=== PATIENT | male | born 2000 | race Caucasian/White ===

== ENCOUNTER 2020-08-01 20:10 | Emergency (ER) | payer OTHER ==
[~2020-08-01 20:10] MED LIST: CARAFATE1 GM PO; ONDANSETRON ODT4 MG SL; PROTONIX 40MG T40 MG PO
[2020-08-01 22:47] LABS: AMPHETAMINES NEGATIVE (NEGATIVE); BARBITURATES NEGATIVE (NEGATIVE); ECSTASY (MDMA) NEGATIVE (NEGATIVE); MARIJUANA (THC) POSITIVE (NEGATIVE); METHADONE NEGATIVE (NEGATIVE); OPIATES NEGATIVE (NEGATIVE); OXYCODONE NEGATIVE (NEGATIVE)
[2020-08-01 22:53] LABS: BASOPHIL 0.6 % (0-2); EOSINOPHIL 1.5 % (0-5); HCT 48.6 % (42.0-52.0); HGB 16.8 g/dl (13.2-18.0); LYMPHOCYTE 27.7 % (15-48); MCH 30.2 pg (25.0-31.0); MCHC 34.6 g/dL (32.0-36.0); MCV 87.3 fL (78.0-100.0); MONOCYTE 6.2 % (0-12); NEUTROPHIL 63.8 % (41-80); NRBC 0; PLT 264 K/uL (150-400); RBC 5.57 M/uL (4.70-6.00); RDW 12.5 % (11.5-14.0); WBC 10.3 K/uL (4.0-10.5)
[2020-08-01 23:12] LABS: ALBUMIN 4.5 g/dL (3.4-5.0); BILIRUBIN - TOTAL 0.8 mg/dL (0.2-1.0); BUN/CREAT RATIO (CALC) 21.6 RATIO; C-REACTIVE PROTEIN 0.2 mg/dL (<=0.90); CREATININE 0.97 mg/dL (0.67-1.17); GLOBULIN (CALCULATION) 3.1 g/dL; IRON % SATURATION 11.6 %SAT (20-50); MAGNESIUM 2.1 mg/dL (1.8-2.4); POTASSIUM 3.4 mmol/L (3.5-5.1); TOTAL PROTEIN 7.6 g/dL (6.4-8.2)
[2020-08-01 23:34] LABS: CORONAVIRUS 2019 SARS-COV-2 NEGATIVE (NEGATIVE); INFLUENZA A NAA NEGATIVE (NEGATIVE)
[2020-08-02] MEDS ORDERED: ATIVAN0.5 MG PO (03:51)
== END 2020-08-02 03:40 | disposition home or self-care (01) ==
LOC: FER 20:10
PROVIDERS: Emergency Medicine Emergency Medical Services
DX: R55 Syncope and collapse (principal); F41.9 Anxiety disorder, unspecified; F17.290 Nicotine dependence, other tobacco product, uncomplicated; Z88.2 Allergy status to sulfonamides; Z20.822 Contact with and (suspected) exposure to COVID-19
CPT/HCPCS: 36415; 70450; 71045; 75635; 80053; 80305; 82550; 83540; 83550; 83735; 84484; 85025; 85379; 86140; 93005; J2060; J7120; Q9967; U0002

== ENCOUNTER 2020-08-21 18:23 | Emergency (ER) | payer OTHER ==
[~2020-08-21 18:23] MED LIST changes: +ATIVAN0.5 MG PO
[2020-08-21 19:39] LABS: BASOPHIL 0.8 % (0-2); EOSINOPHIL 1.2 % (0-5); HCT 43.5 % (42.0-52.0); HGB 15.1 g/dl (13.2-18.0); LYMPHOCYTE 27.2 % (15-48); MCH 30.4 pg (25.0-31.0); MCHC 34.7 g/dL (32.0-36.0); MCV 87.5 fL (78.0-100.0); MONOCYTE 6.6 % (0-12); MPV 9.5 fL (6.0-9.5); NRBC 0; PLT 233 K/uL (150-400); RBC 4.97 M/uL (4.70-6.00); RDW 12.2 % (11.5-14.0); WBC 5.1 K/uL (4.0-10.5)
[2020-08-21 19:55] LABS: ALBUMIN 4.1 g/dL (3.4-5.0); BILIRUBIN - TOTAL 0.9 mg/dL (0.2-1.0); BUN/CREAT RATIO (CALC) 13.7 RATIO; CREATININE 0.95 mg/dL (0.67-1.17); POTASSIUM 3.6 mmol/L (3.5-5.1); TOTAL PROTEIN 7.1 g/dL (6.4-8.2)
[2020-08-21 20:29] LABS: CORONAVIRUS 2019 SARS-COV-2 NEGATIVE (NEGATIVE); INFLUENZA A NAA NEGATIVE (NEGATIVE)
== END 2020-08-21 20:43 | disposition home or self-care (01) ==
LOC: FER 18:23
PROVIDERS: Emergency Medicine Emergency Medical Services
DX: F41.0 Panic disorder [episodic paroxysmal anxiety] (principal); M94.0 Chondrocostal junction syndrome [Tietze]; F17.210 Nicotine dependence, cigarettes, uncomplicated; Z88.2 Allergy status to sulfonamides; Z20.828 Contact with and (suspected) exposure to other viral communicable diseases
CPT/HCPCS: 36415; 71046; 80053; 84484; 85025; 93005; U0002

== ENCOUNTER 2020-08-24 19:05 | Emergency (ER) | payer OTHER | END 2020-08-24 20:25 | disposition left against medical advice (07) | LOC: FER 19:05 | DX: R10.9 Unspecified abdominal pain (principal); Z53.8 Procedure and treatment not carried out for other reasons ==

== ENCOUNTER 2020-09-13 11:20 | Day surgery (SDCO) | payer OTHER ==
[~2020-09-13] VITALS: Ht 188 cm; Wt 70.4 kg
[2020-09-13 12:01] LABS: BASOPHIL 0.8 % (0-2); EOSINOPHIL 0.9 % (0-5); HGB 17.4 g/dl (13.2-18.0); MCH 30.6 pg (25.0-31.0); MCHC 34.1 g/dL (32.0-36.0); MCV 89.8 fL (78.0-100.0); MPV 9.3 fL (6.0-9.5); NEUTROPHIL 59.8 % (41-80); NRBC 0; PLT 265 K/uL (150-400); RBC 5.68 M/uL (4.70-6.00); RDW 12.9 % (11.5-14.0); WBC 6.7 K/uL (4.0-10.5)
[2020-09-13 12:02] LABS: ALBUMIN 4.9 g/dL (3.4-5.0); BILIRUBIN - TOTAL 1.1 mg/dL (0.2-1.0); BUN/CREAT RATIO (CALC) 17.8 RATIO; CREATININE 0.9 mg/dL (0.67-1.17); GLOBULIN (CALCULATION) 3.4 g/dL; POTASSIUM 4.4 mmol/L (3.5-5.1); TOTAL PROTEIN 8.3 g/dL (6.4-8.2)
[2020-09-13 16:45] LABS: FT4 (FREE T4) 1.2 ng/dL (0.76-1.46); PHOSPHORUS 3.8 mg/dL (2.6-4.7); TOTAL T4 8.9 ug/dL (4.7-13.3)
[2020-09-14 06:10] LABS: BASOPHIL 0.5 % (0-2); EOSINOPHIL 1.6 % (0-5); HCT 45.9 % (42.0-52.0); LYMPHOCYTE 37.2 % (15-48); MCH 30.1 pg (25.0-31.0); MCHC 32.7 g/dL (32.0-36.0); MONOCYTE 8.2 % (0-12); MPV 9.2 fL (6.0-9.5); NEUTROPHIL 52.2 % (41-80); NRBC 0; PLT 208 K/uL (150-400); RBC 4.99 M/uL (4.70-6.00); RDW 12.9 % (11.5-14.0); WBC 6.1 K/uL (4.0-10.5)
[2020-09-14 06:29] LABS: BUN/CREAT RATIO (CALC) 14.3 RATIO; CREATININE 1.05 mg/dL (0.67-1.17)
--- NOTE | 2020-09-14 10:53 | NUR ---
PT LIVES WITH GRANDMA; PLEASE ADVISE OF ANY DISCHARGE NEEDS
--- NOTE | 2020-09-14 11:12 | NUR ---
WENT TO SEE THE PATIENT PT REPORTS HE DOES NOT HAVE A RIDE HOME AND NO FAMILY OR FRIENDS ARE AVAILIABLE TO COME AND PICK HIM UP. I DID LET RN, AND WILL LET STUDY DIRECTOR KNOW ONCE SHE IS OUT OF HER MEETING
--- NOTE | 2020-09-14 12:57 | NUR ---
09/14/20 A cab voucher was provided for transportation to grandmother's home. Pt reports that his grandmother doesn't drive and noone else is available to provide transportation.
--- NOTE | 2020-09-14 14:40 | NUR ---
RESP THERAPY PLACED HOLTER MONITOR ON PT AT THIS TIME. INSTRUCTED TO BRING BACK TO HOSPITAL ON 09/17 AT 1445. CALL HOSPITAL WITH ANY QUESTIONS/CONCERNS.
== END 2020-09-14 14:08 | disposition home or self-care (01) ==
LOC: FER 11:20 → FTCU 14:13
PROVIDERS: Emergency Medicine; Nurse Practitioner; ADMIT Internal Medicine
DX: R07.9 Chest pain, unspecified (principal); R55 Syncope and collapse; R00.0 Tachycardia, unspecified; F41.1 Generalized anxiety disorder; F43.10 Post-traumatic stress disorder, unspecified; Q79.3 Gastroschisis; M41.9 Scoliosis, unspecified; G43.909 Migraine, unspecified, not intractable, without status migrainosus; Z72.0 Tobacco use; Z88.2 Allergy status to sulfonamides; Z91.018 Allergy to other foods
CPT/HCPCS: 36415; 71045; 71275; 80048; 80053; 83735; 84100; 84436; 84439; 84443; 84480; 84481; 84484; 85025; 93005; 94010; G0378; J1200; J2405; J7030; Q9967

== ENCOUNTER 2020-09-16 13:20 | Emergency (ER) | payer OTHER | END 2020-09-16 14:15 | disposition home or self-care (01) | LOC: FER 13:20 | DX: F41.1 Generalized anxiety disorder (principal); Z88.2 Allergy status to sulfonamides; Z88.8 Allergy status to other drugs, medicaments and biological substances; Z91.018 Allergy to other foods | CPT/HCPCS: 99283 ==

== ENCOUNTER 2020-10-11 23:17 | Emergency (ER) | payer OTHER ==
[2020-10-11 23:40] LABS: BASOPHIL 0.4 % (0-2); EOSINOPHIL 0.5 % (0-5); HCT 38.8 % (42.0-52.0); HGB 13.4 g/dl (13.2-18.0); LYMPHOCYTE 18.2 % (15-48); MCH 31.2 pg (25.0-31.0); MCHC 34.5 g/dL (32.0-36.0); MCV 90.2 fL (78.0-100.0); MONOCYTE 8.2 % (0-12); MPV 9.4 fL (6.0-9.5); NEUTROPHIL 72.4 % (41-80); NRBC 0; PLT 247 K/uL (150-400); RDW 12.2 % (11.5-14.0); WBC 16.5 K/uL (4.0-10.5)
[2020-10-11 23:50] LABS: INR 1.22 (0.9-1.2); PROTHROMBIN TIME 14.6 SECONDS (11.4-13.6)
== END 2020-10-12 02:48 | disposition home or self-care (01) ==
LOC: FER 23:17
PROVIDERS: Emergency Medicine
DX: K91.841 Postprocedural hemorrhage of a digestive system organ or structure following other procedure (principal); F17.200 Nicotine dependence, unspecified, uncomplicated; Z98.818 Other dental procedure status; Y83.8 Other surgical procedures as the cause of abnormal reaction of the patient, or of later complication, without mention of misadventure at the time of the procedure
CPT/HCPCS: 36415; 85025; 85610; J2405; J7030

== ENCOUNTER 2020-12-18 17:22 | Emergency (ER) | payer OTHER ==
[2020-12-18 18:53] LABS: BASOPHIL 0.6 % (0-2); EOSINOPHIL 1.4 % (0-5); HCT 48.7 % (42.0-52.0); HGB 16.6 g/dl (13.2-18.0); LYMPHOCYTE 33.8 % (15-48); MCH 29.2 pg (25.0-31.0); MCHC 34.1 g/dL (32.0-36.0); MCV 85.7 fL (78.0-100.0); MONOCYTE 8.9 % (0-12); MPV 9.7 fL (6.0-9.5); NEUTROPHIL 55.1 % (41-80); NRBC 0; PLT 234 K/uL (150-400); RBC 5.68 M/uL (4.70-6.00); RDW 12.1 % (11.5-14.0); WBC 4.9 K/uL (4.0-10.5)
[2020-12-18 18:55] LABS: BILIRUBIN NEGATIVE (NEGATIVE); BLOOD NEGATIVE Ery/uL (NEGATIVE); CLARITY CLEAR (CLEAR); COLOR YELLOW (YELLOW); GLUCOSE (U) NORMAL (NORMAL); LEUKOCYTES NEGATIVE Leu/uL (NEGATIVE); NITRITE NEGATIVE (NEGATIVE); PROTEIN NEGATIVE (NEGATIVE); UROBILINOGEN 0.2 mg/dL (0.2-1.0)
[2020-12-18 19:02] LABS: CREATININE 0.99 mg/dL (0.67-1.17); POTASSIUM 4.1 mmol/L (3.5-5.1); TOTAL PROTEIN 8.3 g/dL (6.4-8.2)
[2020-12-18 19:03] LABS: ALBUMIN 4.9 g/dL (3.4-5.0); BILIRUBIN - TOTAL 1.1 mg/dL (0.2-1.0); GLOBULIN (CALCULATION) 3.4 g/dL
[2020-12-18] MEDS ORDERED: ONDANSETRON ODT4 MG SL (19:35)
[2020-12-18] MEDS ORDERED: ANTIVERT25 MG PO (19:35)
[2020-12-18] MEDS ORDERED: PHENERGAN25 M1 PO (19:50)
== END 2020-12-18 19:51 | disposition home or self-care (01) ==
LOC: FER 17:22
PROVIDERS: Emergency Medicine
DX: R42 Dizziness and giddiness (principal); F17.210 Nicotine dependence, cigarettes, uncomplicated; Z88.2 Allergy status to sulfonamides
CPT/HCPCS: 36415; 80053; 81003; 85025; 93005; J0780; J1885

== ENCOUNTER 2021-04-10 13:56 | Emergency (ER) | payer OTHER ==
[~2021-04-10 13:56] MED LIST changes: +ANTIVERT25 MG PO; +PHENERGAN25 M1 PO
[2021-04-10 15:58] LABS: BILIRUBIN NEGATIVE (NEGATIVE); BLOOD NEGATIVE Ery/uL (NEGATIVE); CLARITY CLEAR (CLEAR); COLOR YELLOW (YELLOW); GLUCOSE (U) NORMAL (NORMAL); LEUKOCYTES NEGATIVE Leu/uL (NEGATIVE); NITRITE NEGATIVE (NEGATIVE); PROTEIN NEGATIVE (NEGATIVE); UROBILINOGEN 0.2 mg/dL (0.2-1.0)
[2021-04-10 16:08] LABS: AMPHETAMINES NEGATIVE (NEGATIVE); BARBITURATES NEGATIVE (NEGATIVE); ECSTASY (MDMA) NEGATIVE (NEGATIVE); MARIJUANA (THC) NEGATIVE (NEGATIVE); METHADONE NEGATIVE (NEGATIVE); OPIATES NEGATIVE (NEGATIVE); OXYCODONE NEGATIVE (NEGATIVE)
[2021-04-10 16:50] LABS: BASOPHIL 0.8 % (0-2); EOSINOPHIL 2.2 % (0-5); HCT 49.9 % (42.0-52.0); HGB 16.8 g/dl (13.2-18.0); LYMPHOCYTE 37.1 % (15-48); MCH 29.1 pg (25.0-31.0); MCHC 33.7 g/dL (32.0-36.0); MCV 86.3 fL (78.0-100.0); MONOCYTE 6.9 % (0-12); MPV 9.3 fL (6.0-9.5); NEUTROPHIL 52.8 % (41-80); NRBC 0; PLT 230 K/uL (150-400); RBC 5.78 M/uL (4.70-6.00); RDW 12.8 % (11.5-14.0); WBC 5.1 K/uL (4.0-10.5)
[2021-04-10 17:12] LABS: BUN/CREAT RATIO (CALC) 15.2 RATIO; CREATININE 0.99 mg/dL (0.67-1.17)
[2021-04-10 17:15] LABS: MONOSPOT (MONONUCLEOSIS) NEGATIVE (NEGATIVE)
== END 2021-04-10 18:55 | disposition home or self-care (01) ==
LOC: FER 13:56
PROVIDERS: Nurse Practitioner Family
DX: R06.02 Shortness of breath (principal); R53.81 Other malaise; F17.210 Nicotine dependence, cigarettes, uncomplicated; Z88.2 Allergy status to sulfonamides; Z88.8 Allergy status to other drugs, medicaments and biological substances; Z20.822 Contact with and (suspected) exposure to COVID-19
CPT/HCPCS: 36415; 71046; 80048; 80305; 81003; 85025; 86308; 87880; 93005; J7030; U0002

== ENCOUNTER 2021-06-05 22:21 | Emergency (ER) | payer OTHER ==
[2021-06-05 23:14] LABS: INR 1.12 (0.9-1.2); PROTHROMBIN TIME 13.8 SECONDS (11.8-13.4); PTT 28.6 SECONDS (24.4-34.7)
[2021-06-05 23:31] LABS: BASOPHIL 0.8 % (0-2); EOSINOPHIL 2.5 % (0-5); HCT 48.9 % (42.0-52.0); HGB 16.8 g/dl (13.2-18.0); MCH 29.7 pg (25.0-31.0); MCHC 34.4 g/dL (32.0-36.0); MCV 86.5 fL (78.0-100.0); MONOCYTE 7.3 % (0-12); MPV 9.6 fL (6.0-9.5); NEUTROPHIL 46.1 % (41-80); NRBC 0; PLT 262 K/uL (150-400); RBC 5.65 M/uL (4.70-6.00); RDW 11.9 % (11.5-14.0); WBC 7.3 K/uL (4.0-10.5)
[2021-06-06 00:08] LABS: ALBUMIN 4.6 g/dL (3.4-5.0); BILIRUBIN - TOTAL 0.8 mg/dL (0.2-1.0); GLOBULIN (CALCULATION) 2.9 g/dL; POTASSIUM 4.1 mmol/L (3.5-5.1); TOTAL PROTEIN 7.5 g/dL (6.4-8.2)
[2021-06-06 01:12] LABS: CORONAVIRUS 2019 SARS-COV-2 NEGATIVE (NEGATIVE); INFLUENZA A NAA NEGATIVE (NEGATIVE)
[2021-06-08] MEDS ORDERED: BENTYL10 MG PO (11:00)
[2021-06-08] MEDS ORDERED: IMITREX50 MG PO (11:00)
[2021-06-08] MEDS ORDERED: PHENERGAN25 M1 PO (11:00)
== END 2021-06-06 01:52 | disposition home or self-care (01) ==
LOC: FER 22:21
PROVIDERS: Internal Medicine
DX: R07.89 Other chest pain (principal); T75.4XXA Electrocution, initial encounter; F17.210 Nicotine dependence, cigarettes, uncomplicated; Z88.2 Allergy status to sulfonamides; Z88.8 Allergy status to other drugs, medicaments and biological substances; Z91.018 Allergy to other foods; Z20.822 Contact with and (suspected) exposure to COVID-19
CPT/HCPCS: 36415; 71045; 80053; 84484; 85025; 85610; 85730; 93005; U0002

== ENCOUNTER 2021-06-08 07:11 | Emergency (ER) | payer OTHER | END 2021-06-08 11:45 | disposition home or self-care (01) | LOC: FER 07:11 | DX: R10.13 Epigastric pain (principal); R51.9 Headache, unspecified; F17.210 Nicotine dependence, cigarettes, uncomplicated; Z88.8 Allergy status to other drugs, medicaments and biological substances; Z88.2 Allergy status to sulfonamides; Z91.018 Allergy to other foods ==

== ENCOUNTER 2021-08-23 05:19 | Emergency (ER) | payer OTHER ==
[~2021-08-23 05:19] MED LIST changes: +BENTYL10 MG PO; +IMITREX50 MG PO
== END 2021-08-23 06:28 | disposition home or self-care (01) ==
LOC: FER 05:19
DX: M54.2 Cervicalgia (principal); M25.519 Pain in unspecified shoulder; F17.200 Nicotine dependence, unspecified, uncomplicated; Z88.2 Allergy status to sulfonamides; Z88.8 Allergy status to other drugs, medicaments and biological substances
CPT/HCPCS: 99283

== ENCOUNTER 2021-08-26 19:57 | Emergency (ER) | payer OTHER ==
[2021-08-26] MEDS ORDERED: MEDROL 4MG DOSEP4 MG PO (22:10)
== END 2021-08-26 22:20 | disposition home or self-care (01) ==
LOC: FER 19:57
DX: T78.40XA Allergy, unspecified, initial encounter (principal); F17.210 Nicotine dependence, cigarettes, uncomplicated; Z88.2 Allergy status to sulfonamides; Z91.018 Allergy to other foods; Z91.09 Other allergy status, other than to drugs and biological substances
CPT/HCPCS: J1200; J2930; J7030

== ENCOUNTER 2021-08-28 12:52 | Emergency (ER) | payer OTHER ==
[~2021-08-28 12:52] MED LIST changes: +MEDROL 4MG DOSEP4 MG PO
[2021-08-28 13:58] LABS: CORONAVIRUS 2019 SARS-COV-2 NEGATIVE (NEGATIVE); INFLUENZA A NAA NEGATIVE (NEGATIVE)
== END 2021-08-28 15:06 | disposition home or self-care (01) ==
LOC: FER 12:52
PROVIDERS: Nurse Practitioner Family
DX: T78.40XA Allergy, unspecified, initial encounter (principal); J02.9 Acute pharyngitis, unspecified; Z20.822 Contact with and (suspected) exposure to COVID-19; Z88.2 Allergy status to sulfonamides; Z88.8 Allergy status to other drugs, medicaments and biological substances; Z91.018 Allergy to other foods; Z91.09 Other allergy status, other than to drugs and biological substances
CPT/HCPCS: 87880; 99283; U0002

== ENCOUNTER 2021-08-30 07:55 | Emergency (ER) | payer OTHER | END 2021-08-30 09:20 | disposition home or self-care (01) | LOC: FER 07:55 | DX: T50.905A Adverse effect of unspecified drugs, medicaments and biological substances, initial encounter (principal); F17.210 Nicotine dependence, cigarettes, uncomplicated; Z88.2 Allergy status to sulfonamides; Z88.8 Allergy status to other drugs, medicaments and biological substances; Z88.1 Allergy status to other antibiotic agents | CPT/HCPCS: 99282 ==

== ENCOUNTER 2022-03-23 05:03 | Emergency (ER) | payer OTHER ==
[2022-03-23 05:49] LABS: HCT 52.4 % (42.0-52.0); HGB 17.7 g/dl (13.2-18.0); MCHC 33.8 g/dL (32.0-36.0); MCV 85.8 fL (78.0-100.0); MPV 9.5 fL (6.0-9.5); RBC 6.11 M/uL (4.70-6.00); RDW 12.5 % (11.5-14.0); WBC 6.6 K/uL (4.0-10.5)
[2022-03-23 06:15] LABS: BUN/CREAT RATIO (CALC) 8.8 RATIO; CREATININE 1.13 mg/dL (0.67-1.17); POTASSIUM 3.9 mmol/L (3.5-5.1)
== END 2022-03-23 07:13 | disposition home or self-care (01) ==
LOC: FER 05:03
PROVIDERS: Emergency Medicine
DX: R07.89 Other chest pain (principal); F41.9 Anxiety disorder, unspecified; F17.200 Nicotine dependence, unspecified, uncomplicated; Z88.8 Allergy status to other drugs, medicaments and biological substances; Z28.310 Unvaccinated for COVID-19
CPT/HCPCS: 36415; 80048; 84484; 93005

== ENCOUNTER 2022-03-25 16:20 | Emergency (ER) | payer OTHER ==
[2022-03-25 17:07] LABS: BASOPHIL 0.7 % (0-2); EOSINOPHIL 1.7 % (0-5); HCT 52.6 % (42.0-52.0); HGB 18.3 g/dl (13.2-18.0); LYMPHOCYTE 41.3 % (15-48); MCH 29.2 pg (25.0-31.0); MCHC 34.8 g/dL (32.0-36.0); MONOCYTE 6.5 % (0-12); MPV 9.5 fL (6.0-9.5); NEUTROPHIL 49.5 % (41-80); NRBC 0; PLT 243 K/uL (150-400); RBC 6.26 M/uL (4.70-6.00); RDW 12.4 % (11.5-14.0)
[2022-03-25 17:35] LABS: ALBUMIN 4.8 g/dL (3.4-5.0); BILIRUBIN - TOTAL 1.4 mg/dL (0.2-1.0); BUN/CREAT RATIO (CALC) 13.8 RATIO; CREATININE 1.09 mg/dL (0.67-1.17); GLOBULIN (CALCULATION) 3.3 g/dL; POTASSIUM 3.4 mmol/L (3.5-5.1); TOTAL PROTEIN 8.1 g/dL (6.4-8.2)
[2022-03-25 17:47] LABS: CORONAVIRUS 2019 SARS-COV-2 NEGATIVE (NEGATIVE); INFLUENZA A NAA NEGATIVE (NEGATIVE)
[2022-03-25] MEDS ORDERED: PREDNISONE 10MG10 MG PO (20:35)
== END 2022-03-25 21:17 | disposition home or self-care (01) ==
LOC: FER 16:20
PROVIDERS: Emergency Medicine
DX: R07.89 Other chest pain (principal); F17.200 Nicotine dependence, unspecified, uncomplicated; Z88.8 Allergy status to other drugs, medicaments and biological substances; Z88.2 Allergy status to sulfonamides; Z91.018 Allergy to other foods; Z20.822 Contact with and (suspected) exposure to COVID-19; Z28.310 Unvaccinated for COVID-19
CPT/HCPCS: 36415; 71045; 80053; 84484; 85025; 85379; 93005; J7030; U0002

== ENCOUNTER 2022-03-28 00:49 | Emergency (ER) | payer OTHER ==
[~2022-03-28 00:49] MED LIST changes: +PREDNISONE 10MG10 MG PO
[2022-03-28 01:23] LABS: PROTHROMBIN TIME 12.9 SECONDS (11.9-13.9); PTT 25.6 SECONDS (24.9-34.6)
[2022-03-28 01:29] LABS: BASOPHIL 0.8 % (0-2); EOSINOPHIL 1.8 % (0-5); HCT 51.2 % (42.0-52.0); HGB 17.8 g/dl (13.2-18.0); LYMPHOCYTE 42.7 % (15-48); MCH 29.7 pg (25.0-31.0); MCHC 34.8 g/dL (32.0-36.0); MCV 85.3 fL (78.0-100.0); MONOCYTE 7.2 % (0-12); MPV 9.4 fL (6.0-9.5); NEUTROPHIL 47.3 % (41-80); NRBC 0; PLT 277 K/uL (150-400); RDW 12.2 % (11.5-14.0); WBC 9.6 K/uL (4.0-10.5)
[2022-03-28 01:30] LABS: ALBUMIN 4.7 g/dL (3.4-5.0); BILIRUBIN - TOTAL 0.8 mg/dL (0.2-1.0); BUN/CREAT RATIO (CALC) 15.2 RATIO; CREATININE 1.05 mg/dL (0.67-1.17); GLOBULIN (CALCULATION) 3.3 g/dL; POTASSIUM 3.6 mmol/L (3.5-5.1)
[2022-03-28 01:30] LABS: BILIRUBIN NEGATIVE (NEGATIVE); BLOOD NEGATIVE Ery/uL (NEGATIVE); CLARITY CLEAR (CLEAR); COLOR YELLOW (YELLOW); GLUCOSE (U) NORMAL (NORMAL); LEUKOCYTES NEGATIVE Leu/uL (NEGATIVE); NITRITE NEGATIVE (NEGATIVE); PROTEIN NEGATIVE (NEGATIVE); SPECIFIC GRAVITY 1.025 (1.001-1.030); UROBILINOGEN 0.2 mg/dL (0.2-1.0)
[2022-03-28 01:46] LABS: AMPHETAMINES NEGATIVE (NEGATIVE); BARBITURATES NEGATIVE (NEGATIVE); ECSTASY (MDMA) NEGATIVE (NEGATIVE); MARIJUANA (THC) NEGATIVE (NEGATIVE); METHADONE NEGATIVE (NEGATIVE); OPIATES NEGATIVE (NEGATIVE); OXYCODONE NEGATIVE (NEGATIVE)
== END 2022-03-28 03:27 | disposition home or self-care (01) ==
LOC: FER 00:49
PROVIDERS: Emergency Medicine
DX: R07.89 Other chest pain (principal); F41.9 Anxiety disorder, unspecified; F17.290 Nicotine dependence, other tobacco product, uncomplicated; Z88.2 Allergy status to sulfonamides; Z88.8 Allergy status to other drugs, medicaments and biological substances; Z91.041 Radiographic dye allergy status; Z28.310 Unvaccinated for COVID-19
CPT/HCPCS: 36415; 80053; 80305; 81003; 84484; 85025; 85610; 85730; 93005

== ENCOUNTER 2022-04-04 11:19 | Emergency (ER) | payer OTHER | END 2022-04-04 14:16 | disposition home or self-care (01) | LOC: FER 11:19 | DX: T78.49XA Other allergy, initial encounter (principal); F41.9 Anxiety disorder, unspecified; R11.2 Nausea with vomiting, unspecified; F17.200 Nicotine dependence, unspecified, uncomplicated; Z88.2 Allergy status to sulfonamides; Z88.8 Allergy status to other drugs, medicaments and biological substances; Z28.310 Unvaccinated for COVID-19 | CPT/HCPCS: 99284; J1200 ==